=== PATIENT | male | born 1980 | race Caucasian/White ===

== ENCOUNTER 2024-05-28 00:38 | Emergency (ER) | payer SELFPAY ==
[2024-05-28 01:11] VITALS: BP 132/74; PULSE 77; RESP 16; TEMP 37.2; O2SAT 98; BMI 29.5
[2024-05-28 01:44] VITALS: PULSE 74; O2SAT 98
[2024-05-28 02:00] VITALS: PULSE 82; O2SAT 96
--- NOTE | 2024-05-28 02:04 | ED.EXTPRO ---
HPI - Extremity Problem General Chief complaint: Extremity Problem,Nontraumatic Stated complaint: lt side joint pain/lower back Time Seen by Provider: 05/28/24 01:17 Source: patient Mode of arrival: Ambulatory History of Present Illness HPI Narrative: 44-year-old male who states that he has had left elbow discomfort for past several weeks longer last evening while camping was woken up in the middle of the night with left elbow pain, left hip pain and left knee pain. No fevers. No rashes. No specific trauma. Did not taken anything for symptoms prior to arrival. Related Data Allergies Allergy/AdvReac Type Severity Reaction Status Date / Time No Known Drug Allergies Allergy Verified 05/28/24 01:11 Review of Systems Review of Systems Narrative: See HPI Musculoskeletal Musculoskeletal: Reports system reviewed and no additional complaints, except as documented Patient History Social History Smoking Status: Never smoker Smoking Status: Never smoker Substance Use Type: does not use Exam Initial Vital Signs Initial Vital Signs: Vital Signs Temperature 98.9 F 05/28/24 01:11 Pulse Rate 77 05/28/24 01:11 Respiratory Rate 16 05/28/24 01:11 Blood Pressure 132/74 05/28/24 01:11 Pulse Oximetry 98 05/28/24 01:11 Oxygen Delivery Method Room Air 05/28/24 01:11 Skin General: no rashes or lesions noted Neuro Gait: normal gait Sensory Exam: no sensory deficits noted Extrem Other: Full range of motion of the left knee and left hip. Full range motion left elbow. Course Orders Ordered: ED Orders 05/28/24 02:20 Basic Metabolic Panel Stat C-Reactive Protein Quant Stat Complete Blood Count AUTO DIFF Stat Erythrocyte Sedimentation Rate Stat Discontinued Medications Ibuprofen (Ibuprofen 400 Mg Tablet) 800 mg PO NOW ONE Stop: 05/28/24 02:05 Last Admin: 05/28/24 02:10 Dose: 800 mg Documented By: ANH Vital Signs Vital signs: Vital Signs - 8 hr 05/28/24 01:11 05/28/24 01:44 05/28/24 02:00 Temperature 98.9 F Pulse Rate 77 74 82 Respiratory Rate 16 Blood Pressure 132/74 Pulse Oximetry 98 98 96 Oxygen Delivery Method Room Air 05/28/24 03:00 05/28/24 03:01 05/28/24 03:01 Temperature Pulse Rate 98 H 98 H Respiratory Rate Blood Pressure 106/56 L Pulse Oximetry 96 95 Oxygen Delivery Method Room Air MDM - Extremity (Nontraumatic) Lab Data 05/28/24 02:20 05/28/24 02:20 Labs: Lab Results 05/28/24 Range/Units 02:20 WBC 11.5 H (4.5-11.0) X10^3/uL RBC 4.80 (4.5-5.9) X10^6/uL Hgb 14.1 (13.5-17.5) g/dL Hct 41.0 (41-53) % MCV 85.4 (80-100) fL MCH 29.4 (26-34) PG MCHC 34.4 (30-36) % RDW 13.7 (11.6-14.8) % Plt Count 186 (150-400) X10^3/uL Neut % (Auto) 82.6 H (50-75) % Lymph % (Auto) 9.1 L (25-40) % [place] % (Auto) 7.5 (3-14) % Eos % (Auto) 0.3 L (2-4) % Baso % (Auto) 0.5 (0-2) % Neut # (Auto) 9500 H (5321-6662) /uL Lymph # (Auto) 1000 L (2094-1736) /uL [place] # (Auto) 900 (0-900) /uL Eos # (Auto) 0 (0-450) /uL Baso # (Auto) 100 (0-100) /uL ESR 6 (0-15) MM/HR Sodium 139 (137-145) mmol/L Potassium 3.6 (3.4-5.1) mmol/L Chloride 106 (98-107) mmol/L Carbon Dioxide 27 (22-32) mmol/L BUN 13 (9-20) mg/dL Creatinine 0.83 (0.66-1.25) mg/dL Estimated GFR > 60 (>60) mL/min BUN/Creatinine Ratio 15.7 (6-22) Glucose 96 (70-100) mg/dL Calcium 9.7 (8.4-10.2) mg/dL C-Reactive Protein < 0.5 (<1.0) mg/dL MDM Narrative Medical decision making narrative: Labs are unremarkable. Patient is ambulatory. No fevers. No inflammatory markers. Low suspicion for fractures. Low suspicion for infection. Trauma. Unsure the exact etiology however the patient is ambulatory and he states his symptoms have improved since the onset. Recommended conservative treatment for now to include he denies and anti-inflammatories. He was given return precautions. He expressed understanding and agreement with plan. Discharge Plan Departure Patient Disposition: Home Clinical Impression: Arthritis Instructions: DI for Joint Pain Activity Restrictions/Additional Instructions: Your workup here in the emergency department today unfortunately did not reveal specific cause of your joint pain however there does not appear to be any signs of infection or fractures. Recommend conservative measures such as Tylenol and ibuprofen. Return to the emergency department for new symptoms. Stand Alone Forms: Patient Portal/API
[2024-05-28] MEDS: IBUPROFEN 400 MG TABLET 800 MG PO (02:10)
[2024-05-28 02:35] LABS: Add Manual Diff / Slide Review NO; Basophils Absolute Auto 100 /uL (0-100); Basophils Percent Auto 0.5 % (0-2); Eosinophils Absolute Auto 0 /uL (0-450); Eosinophils Percent Auto 0.3 % (2-4); Hemoglobin 14.1 g/dL (13.5-17.5); Lymphocytes Absolute Auto 1000 /uL (1100-4500); Lymphocytes Percent Auto 9.1 % (25-40); Mean Corpuscular HGB Conc 34.4 % (30-36); Mean Corpuscular Hemoglobin 29.4 PG (26-34); Mean Corpuscular Volume 85.4 fL (80-100); Monocytes Absolute Auto 900 /uL (0-900); Monocytes Percent Auto 7.5 % (3-14); Neutrophils Absolute Auto 9500 /uL (1500-7000); Neutrophils Percent Auto 82.6 % (50-75); Platelet Count 186 X10^3/uL (150-400); Red Cell Distribution Width 13.7 % (11.6-14.8); White Blood Cell Count 11.5 X10^3/uL (4.5-11.0)
[2024-05-28 02:52] LABS: BUN Creatinine Ratio 15.7 (6-22); Blood Urea Nitrogen 13 mg/dL (9-20); C-Reactive Protein Quant < 0.5 mg/dL (<1.0); Calcium 9.7 mg/dL (8.4-10.2); Carbon Dioxide 27 mmol/L (22-32); Chloride 106 mmol/L (98-107); Erythrocyte Sedimentation Rate 6 MM/HR (0-15); Estimated Glomerular Filt Rate > 60 mL/min (>60); Glucose 96 mg/dL (70-100); HEMOLYSIS < 15 (0-50); Potassium 3.6 mmol/L (3.4-5.1); Sodium 139 mmol/L (137-145)
[2024-05-28 03:00] VITALS: PULSE 98; O2SAT 96
[2024-05-28 03:01] VITALS: BP 106/56; PULSE 98; O2SAT 95
== END 2024-05-28 03:05 | disposition home or self-care (01) ==
PROVIDERS: Emergency Provider Emergency Medicine
DX: M19.90 Unspecified osteoarthritis, unspecified site (principal); M25.522 Pain in left elbow; M25.552 Pain in left hip; M25.562 Pain in left knee
CPT/HCPCS: 36415; 80048; 85025; 85651; 86140; 99283